=== PATIENT | female | born 1945 | race Two or more races ===

== ENCOUNTER 2018-06-23 01:41 | Inpatient (IN) | payer MEDICARE, MEDICAID ==
[~2018-06-23] VITALS: Ht 152.4 cm; Wt 48.1 kg
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
[2018-06-23] MEDS ORDERED: CALC500T29 PO (02:12)
[2018-06-23] MEDS ORDERED: CHOL100040 PO (02:13)
[2018-06-23] MEDS ORDERED: SPIR25TA6 PO (02:14)
[2018-06-23] MEDS ORDERED: ALPR1TAB7 PO (02:15)
[2018-06-23] MEDS ORDERED: QUET25TA PO (02:16)
[2018-06-23] MEDS ORDERED: LEVO75TA7 PO (02:18)
[2018-06-23] MEDS ORDERED: METO-358 PO (02:19)
[2018-06-23] MEDS ORDERED: ROSU10TA2 PO (02:20)
[2018-06-23] MEDS ORDERED: ESCI10TA PO (02:26)
[2018-06-23] MEDS ORDERED: FURO40TA5 PO (02:27)
[2018-06-23] MEDS ORDERED: ASPI-1152 PO (02:27)
[2018-06-23] MEDS ORDERED: ALLO100T PO (02:28)
[2018-06-23] MEDS ORDERED: MAG HYDROX/AL HYDROX/SIMETH 30 ML UDC PO PRN (03:00)
[2018-06-23] MEDS ORDERED: ACETAMINOPHEN 325 MG TABLET PO PRN (03:00)
[2018-06-23] MEDS ORDERED: MAGNESIUM HYDROXIDE 30 ML UDC PO PRN (03:00)
[2018-06-23 08:00] VITALS: BP 110/73
--- NOTE | 2018-06-23 13:40 | NUR ---
DR. JORDAN IN THENUNIT AND REMINDED TO RECONCILE THE MEDS.
[2018-06-23 14:59] LABS: BASOPHILS % (AUTO) 0.9 % (0.0-2.0); EOSINOPHILS % (AUTO) 2.3 % (0.0-6.0); HEMATOCRIT 37 % (33-45); HEMOGLOBIN 12.4 g/dL (11.5-14.8); LYMPHOCYTES # (AUTO) 1.2 /CMM (0.8-4.8); LYMPHOCYTES % (AUTO) 27.7 % (20.0-44.0); MEAN CORPUSCULAR HGB CONC 34 g/dl (31.0-36.0); MEAN CORPUSCULAR VOLUME 93 fL (82-100); MONOCYTES # (AUTO) 0.5 /CMM (0.1-1.30); MONOCYTES % (AUTO) 11.3 % (2.0-12.0); NEUTROPHILS # (AUTO) 2.5 /CMM (1.8-8.9); NEUTROPHILS % (AUTO) 57.8 % (43.0-81.0); PLATELET COUNT (AUTO) 180 /CMM (150-450); RED BLOOD CELL COUNT(AUTO) 3.92 MIL/uL (4.0-5.2); WHITE BLOOD COUNT (AUTO) 4.3 K/uL (4.3-11.0)
[2018-06-23] MEDS: CHOLECALCIFEROL 1,000 UNIT TABLET (VIT D3) PO SCH (15:00)
[2018-06-23 16:00] VITALS: BP 117/75
[2018-06-23] MEDS: CALCIUM CARBONATE (1250) 500 MG TABLET PO SCH (17:00)
--- NOTE | 2018-06-23 17:06 | NUR ---
Pt. refused to take the Vit D3 and Calcium Carbonate, was explained on the impotance and offered 3x and still refusing and said "I don't take it".
[2018-06-23] MEDS: clonazePAM 0.5 MG TABLET PO PRN (19:33)
[2018-06-23] MEDS: DIVALPROEX SODIUM 125 MG CAP.SPRINK PO SCH (21:00)
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
--- NOTE | 2018-06-23 21:40 | NUR ---
GPS/CCTV TECHNICIAN NOTES: MANAGER IN HOME NOTIFIED THAT I WAS UNABLE TO GIVE HS MEDS DUE TO IT STILL BEING UNVERIFIED BY PHARMACY. MANAGER IN HOME MURALI STATED TO JUST LEAVE IT TILL TOMORROW.
[2018-06-23] MEDS ORDERED: QUETIAPINE FUMARATE 25 MG TABLET PO SCH (22:00)
[2018-06-24] MEDS: TEMAZEPAM 7.5 MG CAPSULE PO PRN (01:16)
[2018-06-24 07:15] LABS: BASOPHILS % (AUTO) 0.9 % (0.0-2.0); EOSINOPHILS % (AUTO) 3.8 % (0.0-6.0); HEMATOCRIT 34 % (33-45); HEMOGLOBIN 11.7 g/dL (11.5-14.8); LYMPHOCYTES # (AUTO) 1.1 /CMM (0.8-4.8); LYMPHOCYTES % (AUTO) 26.8 % (20.0-44.0); MEAN CORPUSCULAR HGB CONC 35 g/dl (31.0-36.0); MEAN CORPUSCULAR VOLUME 93 fL (82-100); MONOCYTES # (AUTO) 0.5 /CMM (0.1-1.30); NEUTROPHILS # (AUTO) 2.4 /CMM (1.8-8.9); NEUTROPHILS % (AUTO) 56.5 % (43.0-81.0); PLATELET COUNT (AUTO) 162 /CMM (150-450); RED BLOOD CELL COUNT(AUTO) 3.62 MIL/uL (4.0-5.2); WHITE BLOOD COUNT (AUTO) 4.2 K/uL (4.3-11.0)
[2018-06-24 07:47] LABS: ALANINE AMINOTRANSFERASE 39 U/L (12-78); ALBUMIN 3.2 g/dL (3.4-5.0); ALKALINE PHOSPHATASE 132 U/L (46-116); ASPARTATE AMINOTRANSFERASE 30 U/L (15-37); CALCIUM, SERUM 8.7 mg/dL (8.5-10.1); CARBON DIOXIDE 24 mmol/L (21-32); CHLORIDE 108 mmol/L (98-107); CHOLESTEROL 158 mg/dL (<200); CREATININE 0.8 mg/dL (0.6-1.3); GLUCOSE 100 mg/dL (74-106); HDL CHOLESTEROL 95 mg/dL (40-60); LDL 55 mg/dL (0-99); POTASSIUM 3.9 mmol/L (3.5-5.1); SODIUM SERUM 144 mmol/L (136-145); THYROID STIMULATING HORMONE 5.073 uIU/mL (0.358-3.74); TOTAL PROTEIN, SERUM 6.6 g/dL (6.4-8.2); TRIGLYCERIDES 56 mg/dL (30-150); UREA NITROGEN, BLOOD 24 mg/dL (7-18)
[2018-06-24] MEDS ORDERED: OLANZAPINE 10 MG VIAL IM ONE (08:00)
--- NOTE | 2018-06-24 08:00 | NUR ---
RN-CO: Patient is yelling, screaming, non redirectable. High fall risk. 1:1 sitter ordered.
[2018-06-24] MEDS: ATORVASTATIN 10 MG TABLET PO SCH (09:00)
[2018-06-24] MEDS: CALCIUM CARBONATE (1250) 500 MG TABLET PO SCH ×2 (09:00→17:00)
[2018-06-24] MEDS: ALLOPURINOL 100 MG TABLET PO SCH (09:00)
[2018-06-24] MEDS: DIVALPROEX SODIUM 125 MG CAP.SPRINK PO SCH ×2 (09:00→17:00)
[2018-06-24] MEDS: ASPIRIN EC 81 MG TABLET.DR PO SCH (09:00)
[2018-06-24] MEDS: FUROSEMIDE 40 MG TABLET PO SCH (09:00)
[2018-06-24] MEDS: LEVOTHYROXINE SODIUM 75 MCG TABLET PO SCH (09:00)
[2018-06-24] MEDS: SPIRONOLACTONE 25 MG TABLET PO SCH (09:00)
[2018-06-24] MEDS: CHOLECALCIFEROL 1,000 UNIT TABLET (VIT D3) PO SCH (09:00)
--- NOTE | 2018-06-24 12:56 | NUR ---
SW called the pts sister in law, Opal ([phone]), who stated that the pt can return home because they informed the that if there are any problems then he would have to leave and they will care for the pt.
--- NOTE | 2018-06-24 12:57 | NUR ---
Initial Discharge Plan: Pt currently resides at her home located at [address] [place] [address], [address], [place] [address]; ([phone]) with her , Aga ([phone]). Per pt, she would not like to return home with her . SW will work with the pt and the MD regarding appropriate discharge planning. SW will form a safe and proper discharge.
[2018-06-24 16:00] VITALS: BP 145/70
--- NOTE | 2018-06-24 16:37 | NUR ---
RN-CO: Patient is calmer, cooperative and more redirectable. Discontinued 1:1 sitter.
[2018-06-24] MEDS: OLANZAPINE 5 MG TABLET PO SCH (17:00)
[2018-06-24 20:00] VITALS: BP 143/70
[2018-06-24] MEDS: clonazePAM 0.5 MG TABLET PO PRN (22:56)
--- NOTE | 2018-06-24 22:56 | NUR ---
LABILE, HYPERACTIVE, ANXIOUS, CLONAZEPAM 0.5 MG TAB PO GIVEN.
[2018-06-25 08:00] VITALS: BP 140/67
[2018-06-25] MEDS: DIVALPROEX SODIUM 125 MG CAP.SPRINK PO SCH ×3 (08:00→17:00)
[2018-06-25] MEDS: ALLOPURINOL 100 MG TABLET PO SCH (09:00)
[2018-06-25] MEDS: OLANZAPINE 5 MG TABLET PO SCH ×3 (09:00→17:00)
[2018-06-25] MEDS: FUROSEMIDE 40 MG TABLET PO SCH (09:00)
[2018-06-25] MEDS: CHOLECALCIFEROL 1,000 UNIT TABLET (VIT D3) PO SCH (09:00)
[2018-06-25] MEDS: ATORVASTATIN 10 MG TABLET PO SCH (09:00)
[2018-06-25] MEDS: LEVOTHYROXINE SODIUM 75 MCG TABLET PO SCH (09:00)
[2018-06-25] MEDS: SPIRONOLACTONE 25 MG TABLET PO SCH (09:00)
[2018-06-25] MEDS: CALCIUM CARBONATE (1250) 500 MG TABLET PO SCH ×2 (09:00→17:00)
[2018-06-25] MEDS: METOPROLOL SUCCINATE 50 MG TAB.SR.24H PO SCH ×2 (09:00→17:00)
[2018-06-25] MEDS: ASPIRIN EC 81 MG TABLET.DR PO SCH ×2 (09:13→10:32)
--- NOTE | 2018-06-25 14:17 | NUR ---
GPS RN NOTE: PATIENT REFUSED AM AND PM MEDS, ONLY TAKES ASPIRIN, EXPLAINED THE RISK AND BENEFITS X 3 ATTEMPTS BUT PATIENT STILL REFUSED, SCREAMED "NO NO NO". FAMILY AT BEDSIDE AND HELPED OFFERED THE MEDICATION BUT THE PATIENT STILL REFUSED. WILL CONTINUE TO MONITOR [id number] FOR SAFETY
[2018-06-25 16:09] VITALS: BP 132/80
--- NOTE | 2018-06-25 19:30 | NUR ---
GPS RN NOTE, RECEIVED PATIENT AWAKE AND IN ROOM NO S/S OR COMPLAINTS OF PAIN AT THIS TIME. PATIENT IS DISPLAYING NO S/S OF APPARENT DISTRESS AT THIS TIME. PATIENT BREATHING IS UNLABORED WITH EQUAL RISE AND FALL OF THE CHEST. PATIENT IS ALERT AND ORIENTED X 1-2 ON ROOM AIR WITH A SPO2 OF 97%. PATIENT HAS A ONE TO ONE FOR SAFETY. PATIENT IS REFUSING ALL MEDS, DISORGANIZED, HYPERVERBAL, LABILE, COOPERATIVE, AND NEEDS REORIENTATION. PATIENT DENIES SUICIDE AND HOMICIDAL IDEATIONS AT THIS TIME. PATIENT ASSISTED WITH TURNING AND REPOSITIONING Q2HR AND PRN FOR COMFORT AND CIRCULATION. PATIENT HAS NO NEEDS AT THIS TIME. PATIENT EDUCATED ON THE USE OF THE CALL YEE. PATIENT BED SIDE RAILS ARE UP X 2 FOR SAFETY, BED IS LOCKED AND LOW. WILL CONTINUE TO MONITOR AND MAINTAIN SAFETY Q15 MIN WITH THE HELP OF STAFF.
[2018-06-25 20:00] VITALS: BP 136/66
[2018-06-26] MEDS: DIVALPROEX SODIUM 125 MG CAP.SPRINK PO SCH ×3 (07:54→17:00)
[2018-06-26 08:00] VITALS: BP 143/77
[2018-06-26] MEDS: FUROSEMIDE 40 MG TABLET PO SCH (08:00)
[2018-06-26] MEDS: SPIRONOLACTONE 25 MG TABLET PO SCH (08:00)
[2018-06-26] MEDS: CHOLECALCIFEROL 1,000 UNIT TABLET (VIT D3) PO SCH (08:00)
[2018-06-26] MEDS: OLANZAPINE 5 MG TABLET PO SCH ×3 (08:00→17:00)
[2018-06-26] MEDS: ALLOPURINOL 100 MG TABLET PO SCH (08:00)
[2018-06-26] MEDS: METOPROLOL SUCCINATE 50 MG TAB.SR.24H PO SCH ×2 (08:00→17:00)
[2018-06-26] MEDS: LEVOTHYROXINE SODIUM 75 MCG TABLET PO SCH (08:00)
[2018-06-26] MEDS: ATORVASTATIN 10 MG TABLET PO SCH (08:00)
[2018-06-26] MEDS: CALCIUM CARBONATE (1250) 500 MG TABLET PO SCH ×2 (08:00→17:00)
[2018-06-26 16:00] VITALS: BP 140/70
--- NOTE | 2018-06-26 19:09 | NUR ---
Pt refused all her scheduled medication today.
--- NOTE | 2018-06-26 19:30 | NUR ---
GPS RN NOTE, RECEIVED PATIENT AWAKE AND IN ROOM NO S/S OR COMPLAINTS OF PAIN AT THIS TIME. PATIENT IS DISPLAYING NO S/S OF APPARENT DISTRESS AT THIS TIME. PATIENT BREATHING IS UNLABORED WITH EQUAL RISE AND FALL OF THE CHEST. PATIENT IS ALERT AND ORIENTED X 1-2 ON ROOM AIR WITH A SPO2 OF 94%. PATIENT HAS A ONE TO ONE FOR SAFETY. PATIENT IS REFUSING ALL MEDS, DISORGANIZED, HYPERVERBAL, LABILE, COOPERATIVE, AND NEEDS REORIENTATION. PATIENT DENIES SUICIDE AND HOMICIDAL IDEATIONS AT THIS TIME. PATIENT ASSISTED WITH TURNING AND REPOSITIONING Q2HR AND PRN FOR COMFORT AND CIRCULATION. PATIENT HAS NO NEEDS AT THIS TIME. PATIENT EDUCATED ON THE USE OF THE CALL YEE. PATIENT BED SIDE RAILS ARE UP X 2 FOR SAFETY, BED IS LOCKED AND LOW. WILL CONTINUE TO MONITOR AND MAINTAIN SAFETY Q15 MIN WITH THE HELP OF STAFF.
[2018-06-26 19:36] VITALS: BP 147/79
[2018-06-26] MEDS: clonazePAM 0.5 MG TABLET PO PRN (19:50)
--- NOTE | 2018-06-26 19:50 | NUR ---
GPS RN NOTE, PATIENT HAS A COMPLAINT OF FEELING ANXIOUS AND IS REQUESTING KLONOPIN AT THIS TIME. PATIENT VITAL SIGNS ARE STABLE. GAVE KLONOPIN 0.5 MG PO Q4HR PRN ORDERED. WILL REASSESS FOR ANXIETY AND I WILL CONTINUE TO MONITOR THIS PATIENT.
--- NOTE | 2018-06-26 20:00 | NUR ---
GPS RN NOTE, PATIENT REFUSED TO HAVE A SKIN ASSESSMENT AND PICTURES TAKEN TODAY. OFFERED TO DO SKIN ASSESSMENT THREE TIMES BUT STILL PATIENT REFUSED. EDUCATED THIS PATIENT ON HOSPITAL POLICY ON DOING SKIN ASSESSMENT AND TAKING PICTURES. WILL CONTINUE TO MONITOR THIS PATIENT.
--- NOTE | 2018-06-26 23:30 | NUR ---
blower blast furnace notes got report from another nurse Abdulaziz for continuity of care. pt still resting lying down on her bed.no agitation noted. ate her snacks earlier but still refusing to take her medication even explained to her the benefits of its. will continue closely monitoring for pt. safety.
--- NOTE | 2018-06-27 01:19 | NUR ---
GPS RN NOTE, PATIENT ENDORSED TO SANDRA JACOBSON FOR CONTINUATION OF CARE.
[2018-06-27 07:42] LABS: CALCIUM, SERUM 9.3 mg/dL (8.5-10.1); CARBON DIOXIDE 28 mmol/L (21-32); CHLORIDE 102 mmol/L (98-107); CREATININE 0.8 mg/dL (0.6-1.3); GLUCOSE 137 mg/dL (74-106); SODIUM SERUM 139 mmol/L (136-145); UREA NITROGEN, BLOOD 28 mg/dL (7-18)
[2018-06-27] MEDS: DIVALPROEX SODIUM 125 MG CAP.SPRINK PO SCH ×3 (08:00→17:00)
--- NOTE | 2018-06-27 08:11 | NUR ---
GPS RN NOTE: Patient is yelling, screaming, uncooperative, high fall risk, un cooperative, non redirectable. 1:1 sitter reordered. CN aware.
[2018-06-27 08:44] VITALS: BP 158/80
[2018-06-27] MEDS: CHOLECALCIFEROL 1,000 UNIT TABLET (VIT D3) PO SCH (09:00)
[2018-06-27] MEDS: LEVOTHYROXINE SODIUM 75 MCG TABLET PO SCH (09:00)
[2018-06-27] MEDS: CALCIUM CARBONATE (1250) 500 MG TABLET PO SCH ×2 (09:00→17:00)
[2018-06-27] MEDS: ATORVASTATIN 10 MG TABLET PO SCH (09:00)
[2018-06-27] MEDS: OLANZAPINE 5 MG TABLET PO SCH ×3 (09:00→17:00)
[2018-06-27] MEDS: ALLOPURINOL 100 MG TABLET PO SCH (09:00)
[2018-06-27] MEDS: METOPROLOL SUCCINATE 50 MG TAB.SR.24H PO SCH ×2 (09:00→17:00)
[2018-06-27] MEDS: FUROSEMIDE 40 MG TABLET PO SCH (09:00)
[2018-06-27] MEDS: SPIRONOLACTONE 25 MG TABLET PO SCH (09:00)
[2018-06-27] MEDS: ASPIRIN EC 81 MG TABLET.DR PO SCH (09:00)
--- NOTE | 2018-06-27 14:23 | NUR ---
Opal ([phone]), pt's sister, called the SW and asked for an update regarding the pts discharge plan. SW stated that the pt is going to be discharged to a SNF per psychiatrist recommendation.
--- NOTE | 2018-06-27 14:24 | NUR ---
RISHI faxed a referral to [facility] (attn Raghavendra) to the fax number: [phone].
--- NOTE | 2018-06-27 14:25 | NUR ---
RISHI called the pt's , Aga ([phone]), but was unable to leave a message due to the need for an access code.
--- NOTE | 2018-06-27 14:43 | NUR ---
[facility] ([phone]) from [facility] called the SW and stated that the pt is accepted to the facility. SW discussed the pt's support system and also discussed that the pt is not ready for discharge at this time.
[2018-06-27 16:00] VITALS: BP 128/79
[2018-06-27 19:46] VITALS: BP 124/75
--- NOTE | 2018-06-28 01:39 | NUR ---
GPS-NOTES: PATIENT WOKE UP VERY AGITATED, BANGING THE DOOR, SPITTING, IRRITABLE, ANGRY, SCREAMING AND YELLING, PACING IN AND OUT OF HER ROOM, UNABLE TO FOLLOW INSTRUCTION/REDIRECTION. NEEDING CHEMICAL RESTRAINT. NOTIFIED DR. CARTER AND OBTAINED ORDER OF ZYPREXA 5MG IM X ONE NOTED AND CARRIED OUT. WILL MONITOR MEDICATION FOR EFFECTIVENESS AND PATIENT SAFETY. Addendum: 06/28/18 at 0557 by WALTER PATTERSON RN PATIENT IS AGGRESSIVE TOWARDS STAFF.
[2018-06-28] MEDS ORDERED: OLANZAPINE 10 MG VIAL IM ONE (02:00)
[2018-06-28] MEDS: DIVALPROEX SODIUM 125 MG CAP.SPRINK PO SCH ×3 (08:00→17:00)
[2018-06-28 08:04] VITALS: BP 126/74
[2018-06-28] MEDS: ASPIRIN EC 81 MG TABLET.DR PO SCH (08:49)
[2018-06-28] MEDS: SPIRONOLACTONE 25 MG TABLET PO SCH (08:49)
[2018-06-28] MEDS: METOPROLOL SUCCINATE 50 MG TAB.SR.24H PO SCH ×2 (08:50→17:00)
[2018-06-28] MEDS: LEVOTHYROXINE SODIUM 75 MCG TABLET PO SCH (08:50)
[2018-06-28] MEDS: CHOLECALCIFEROL 1,000 UNIT TABLET (VIT D3) PO SCH (08:50)
[2018-06-28] MEDS: ATORVASTATIN 10 MG TABLET PO SCH (08:50)
[2018-06-28] MEDS: FUROSEMIDE 40 MG TABLET PO SCH (08:50)
[2018-06-28] MEDS: ALLOPURINOL 100 MG TABLET PO SCH (08:50)
[2018-06-28] MEDS: CALCIUM CARBONATE (1250) 500 MG TABLET PO SCH ×2 (08:50→17:00)
[2018-06-28] MEDS: OLANZAPINE 5 MG TABLET PO SCH ×3 (08:51→17:00)
--- NOTE | 2018-06-28 08:51 | NUR ---
GPS/RN-NOTES PATIENT STRONGLY REFUSED ALL AM MEDICATIONS DESPITE EXPLANATIONS RISK AND BENEFITS. PATIENT STATED" NO I DON'T TAKE MEDICATIONS'.OFFERED X3.
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
[2018-06-28] MEDS ORDERED: OLANZAPINE 10 MG VIAL IM STA (09:36)
--- NOTE | 2018-06-28 11:57 | NUR ---
SW spoke to the pt and informed her about her mental illness. Pt stated that she is not sure why she was admitted to the hospital and stated that she should be released soon. SW stated that she was admitted due to psychotic behavior and because she has been refusing to take her medications, her progress has been declining. Pt did not agree with the SW.
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
--- NOTE | 2018-06-28 12:23 | NUR ---
RISHI faxed a referral to the [facility] with attention to admissions to the fax number: [phone].
--- NOTE | 2018-06-28 13:08 | NUR ---
GPS/RN-NOTES PATIENT REFUSED ALL 1300 MEDICATIONS. STATED" I WILL NOT TAKE MEDICATIONS".
[2018-06-28 15:12] VITALS: BP 142/85
--- NOTE | 2018-06-28 16:07 | NUR ---
GPS/RN-NOTES PATIENT C/O CHEST PAIN, VITAL SIGN 135/99 AND PULSE OF 109. O2 SAT OF 100% ROOM AIR. MANAGER WAREHOUSE OMAR MADE AWARE BY THE CHARGE NURSE WITH ORDERS OF TROPONIN Q6 HR X3 AND EKG STAT.
--- NOTE | 2018-06-28 17:01 | NUR ---
GPS/RN-NOTES PATIENT REFUSED ALL [address] WHITTAKER COVERING FOR DR. CARTER MADE AWARE OF PATIENT NONCOMPLIANT WITH P.O MEDICATIONS. PATIENT IN THE DAY ROOM SITTING IN THE CHAIR CALM AWAKE,ALERT ,NO ACUTE DISTRESS NOTED.ENDORSE TO CHARGE NURSE FOR CONTINUITY OF CARE.
[2018-06-28 19:39] VITALS: BP 132/76
--- NOTE | 2018-06-29 02:00 | NUR ---
GPS-NOTES: PATIENT C/O PAIN ON HER LEFT BREAST. ASSESSMENT MADE, NOTED WITH BRUISE ON THE LEFT LATERAL SIDE OF HER BREAST. PT. C/O PAIN WHEN TOUCHED, OFFERED COLD COMPRESS AND PAIN MEDICATION. PATIENT REFUSED AND BECAME AGITATED. AFTER EXPLAINING TO HER THE RISKS AND BENEFITS PATIENT WENT BACK TO SLEEP. WILL CONTINUE TO MONITOR AND CONTINUE TO ASSESS FOR PAIN. 06:45AM - RECEIVED EKG RESULT, WILL ENDORSE TO THE DAY SHIFT NURSE TO NOTIFY MD FOR THE RESULT.
[2018-06-29] MEDS: clonazePAM 0.5 MG TABLET PO PRN ×2 (02:08→20:39)
[2018-06-29] MEDS: TEMAZEPAM 7.5 MG CAPSULE PO PRN ×2 (02:22→21:31)
[2018-06-29 08:00] VITALS: BP 120/78
[2018-06-29] MEDS: DIVALPROEX SODIUM 125 MG CAP.SPRINK PO SCH ×3 (08:00→17:00)
--- NOTE | 2018-06-29 08:00 | NUR ---
GPS/RN-NOTES PATIENT WANDERING ROOM TO ROOM BANGING DOORS AND PUSHING COMPUTER IN THE HALLWAY,SCREAMING AND YELLING. UNREDIRECTABLE, CHARGE NURSE MADE DR CARTER AWARE OF PATIENT'S BEHAVIOR WITH IM ORDERS.
[2018-06-29] MEDS ORDERED: HALOPERIDOL LACTATE INJ 5 MG/ML VIAL IM STA (08:01)
[2018-06-29] MEDS ORDERED: LORAZEPAM INJ 2 MG/ML VIAL IM STA (08:03)
[2018-06-29] MEDS ORDERED: diphenhydrAMINE HCL 50 MG/ML VIAL IM STA (08:04)
[2018-06-29] MEDS: CHOLECALCIFEROL 1,000 UNIT TABLET (VIT D3) PO SCH (09:00)
[2018-06-29] MEDS: FUROSEMIDE 40 MG TABLET PO SCH (09:00)
[2018-06-29] MEDS: ATORVASTATIN 10 MG TABLET PO SCH (09:00)
[2018-06-29] MEDS: SPIRONOLACTONE 25 MG TABLET PO SCH (09:00)
[2018-06-29] MEDS: METOPROLOL SUCCINATE 50 MG TAB.SR.24H PO SCH ×2 (09:00→17:00)
[2018-06-29] MEDS: ASPIRIN EC 81 MG TABLET.DR PO SCH (09:00)
[2018-06-29] MEDS: LEVOTHYROXINE SODIUM 75 MCG TABLET PO SCH (09:00)
[2018-06-29] MEDS: OLANZAPINE 5 MG TABLET PO SCH (09:00)
[2018-06-29] MEDS: ALLOPURINOL 100 MG TABLET PO SCH (09:00)
[2018-06-29] MEDS: CALCIUM CARBONATE (1250) 500 MG TABLET PO SCH ×2 (09:00→17:00)
--- NOTE | 2018-06-29 09:09 | NUR ---
GPS/RN-NOTES PATIENT REFUSED ALL AM MEDICATIONS DESPITE EXPLANATIONS RISK AND BENEFITS. PATIENT STATED" NO I DON'T TAKE MEDICATIONS".OFFERED X3.
[2018-06-29] MEDS: BENZTROPINE MESYLATE (1 MG) 1 MG TABLET PO SCH ×2 (12:30→20:39)
--- NOTE | 2018-06-29 13:36 | NUR ---
GPS/RN-NOTES PATIENT REFUSED COGENTIN 0.5MG P.O AND DEPAKOTE 250MG P.O. OFFERED X3. CHARGE NURSE TRIED TO TALK AND OFFERED THE MEDICATIONS BUT PATIENT STILL REFUSED.
--- NOTE | 2018-06-29 13:36 | NUR ---
SW received a message from Karin from the [facility] and she stated that the pt was not accepted to the facility due to her psychotic behavior.
--- NOTE | 2018-06-29 13:41 | NUR ---
RISHI called the pts niece, Emma ([phone]), and informed her that the pt was not accepted to the [facility] due to her psychotic behavior. She stated that she would like the SW to send the referral one more time when she begins taking her medications and shows improvement. RISHI informed her that the pt was going to have her PC hearing today and this hearing will determine whether or not the pt should remain on her hold. RISHI stated that she would inform her about the results. RISHI also informed her that the It Project Lead for [facility], Raghavendra, is willing to speak to her about the Kosher options at the facility and SW provided her with the phone number to reach him at.
[2018-06-29 16:05] VITALS: BP 111/67
[2018-06-29] MEDS: HALOPERIDOL 5 MG TABLET PO SCH (17:39)
[2018-06-29 20:09] VITALS: BP 133/58
[2018-06-30 08:00] VITALS: BP 131/74
[2018-06-30] MEDS: DIVALPROEX SODIUM 125 MG CAP.SPRINK PO SCH ×3 (08:28→17:00)
[2018-06-30] MEDS: CALCIUM CARBONATE (1250) 500 MG TABLET PO SCH ×2 (08:34→17:00)
[2018-06-30] MEDS: ATORVASTATIN 10 MG TABLET PO SCH (08:34)
[2018-06-30] MEDS: BENZTROPINE MESYLATE (1 MG) 1 MG TABLET PO SCH ×2 (08:35→20:05)
[2018-06-30] MEDS: LEVOTHYROXINE SODIUM 75 MCG TABLET PO SCH (08:35)
[2018-06-30] MEDS: FUROSEMIDE 40 MG TABLET PO SCH (08:36)
[2018-06-30] MEDS: CHOLECALCIFEROL 1,000 UNIT TABLET (VIT D3) PO SCH (08:36)
[2018-06-30] MEDS: ASPIRIN EC 81 MG TABLET.DR PO SCH (08:36)
[2018-06-30] MEDS: HALOPERIDOL 5 MG TABLET PO SCH ×2 (08:36→17:00)
[2018-06-30] MEDS: METOPROLOL SUCCINATE 50 MG TAB.SR.24H PO SCH ×2 (08:43→17:00)
[2018-06-30] MEDS: SPIRONOLACTONE 25 MG TABLET PO SCH (08:45)
[2018-06-30] MEDS: ALLOPURINOL 100 MG TABLET PO SCH (08:45)
--- NOTE | 2018-06-30 09:09 | NUR ---
RISHI called the pt's , Aga ([phone]), and he stated that he does not speak [place] and requested that the SW speak to Opal, the pt's sister in law.
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
--- NOTE | 2018-06-30 11:28 | NUR ---
PT. WITH AN ORDER OF CHANGE SERVICE TO DR. WHITTAKER
[2018-06-30] MEDS ORDERED: BENZTROPINE MESYLATE (1 MG) 1 MG TABLET NG PRN (15:00)
[2018-06-30 16:00] VITALS: BP 126/66
[2018-06-30] MEDS: HALOPERIDOL LACTATE INJ 5 MG/ML VIAL IM PRN (17:48)
--- NOTE | 2018-06-30 18:00 | NUR ---
HALDOL 3MG IM GIVEN IN LEFT GLUTEUS RENATE PER MD ORDER
[2018-06-30] MEDS ORDERED: BENZTROPINE MESYLATE (2MG/2ML) 2 MG/2 ML AMPUL IM PRN (18:30)
[2018-06-30 20:00] VITALS: BP 130/55
[2018-07-01 08:00] VITALS: BP 124/59
[2018-07-01] MEDS: DIVALPROEX SODIUM 125 MG CAP.SPRINK PO SCH ×4 (08:00→17:00)
[2018-07-01] MEDS: CALCIUM CARBONATE (1250) 500 MG TABLET PO SCH ×3 (08:24→17:00)
[2018-07-01] MEDS: HALOPERIDOL 5 MG TABLET PO SCH ×3 (08:24→17:00)
[2018-07-01] MEDS: CHOLECALCIFEROL 1,000 UNIT TABLET (VIT D3) PO SCH ×2 (08:24→09:00)
[2018-07-01] MEDS: FUROSEMIDE 40 MG TABLET PO SCH ×2 (08:25→09:00)
[2018-07-01] MEDS: LEVOTHYROXINE SODIUM 75 MCG TABLET PO SCH ×2 (08:25→09:00)
[2018-07-01] MEDS: ATORVASTATIN 10 MG TABLET PO SCH ×2 (08:25→09:00)
[2018-07-01] MEDS: SPIRONOLACTONE 25 MG TABLET PO SCH ×2 (08:25→09:00)
[2018-07-01] MEDS: ALLOPURINOL 100 MG TABLET PO SCH ×2 (08:25→09:00)
[2018-07-01] MEDS: ASPIRIN EC 81 MG TABLET.DR PO SCH ×2 (08:26→09:00)
[2018-07-01] MEDS: METOPROLOL SUCCINATE 50 MG TAB.SR.24H PO SCH ×3 (08:26→17:00)
[2018-07-01] MEDS: HALOPERIDOL LACTATE INJ 5 MG/ML VIAL IM PRN ×2 (08:59→18:20)
[2018-07-01] MEDS: BENZTROPINE MESYLATE (1 MG) 1 MG TABLET PO SCH ×2 (09:00→21:39)
[2018-07-01 16:00] VITALS: BP 118/61
--- NOTE | 2018-07-01 16:04 | NUR ---
SW attempted to provide the pt with supportive counseling through individual therapy but the pt stated that she did not want to participate and that she just wanted to be discharged home.
[2018-07-01 20:00] VITALS: BP 122/56
[2018-07-02 08:00] VITALS: BP 107/62
[2018-07-02] MEDS: DIVALPROEX SODIUM 125 MG CAP.SPRINK PO SCH ×3 (08:00→16:18)
[2018-07-02] MEDS: ASPIRIN EC 81 MG TABLET.DR PO SCH (08:20)
[2018-07-02] MEDS: HALOPERIDOL 5 MG TABLET PO SCH ×2 (08:20→16:18)
[2018-07-02] MEDS: SPIRONOLACTONE 25 MG TABLET PO SCH (08:21)
[2018-07-02] MEDS: BENZTROPINE MESYLATE (1 MG) 1 MG TABLET PO SCH ×2 (08:22→20:25)
[2018-07-02] MEDS: METOPROLOL SUCCINATE 50 MG TAB.SR.24H PO SCH ×2 (08:23→16:18)
[2018-07-02] MEDS: CALCIUM CARBONATE (1250) 500 MG TABLET PO SCH ×2 (08:30→16:18)
[2018-07-02] MEDS: LEVOTHYROXINE SODIUM 75 MCG TABLET PO SCH (08:30)
[2018-07-02] MEDS: CHOLECALCIFEROL 1,000 UNIT TABLET (VIT D3) PO SCH (08:30)
[2018-07-02] MEDS: ATORVASTATIN 10 MG TABLET PO SCH (08:31)
[2018-07-02] MEDS: FUROSEMIDE 40 MG TABLET PO SCH (08:31)
[2018-07-02] MEDS: ALLOPURINOL 100 MG TABLET PO SCH (08:31)
[2018-07-02 16:00] VITALS: BP 143/53
[2018-07-02 20:00] VITALS: BP 126/71
[2018-07-02] MEDS: clonazePAM 0.5 MG TABLET PO PRN (20:26)
[2018-07-03 08:00] VITALS: BP 129/59
[2018-07-03] MEDS: DIVALPROEX SODIUM 125 MG CAP.SPRINK PO SCH ×3 (08:00→16:53)
[2018-07-03] MEDS: SPIRONOLACTONE 25 MG TABLET PO SCH (09:00)
[2018-07-03] MEDS: BENZTROPINE MESYLATE (1 MG) 1 MG TABLET PO SCH ×2 (09:00→21:13)
[2018-07-03] MEDS: CHOLECALCIFEROL 1,000 UNIT TABLET (VIT D3) PO SCH (09:00)
[2018-07-03] MEDS: FUROSEMIDE 40 MG TABLET PO SCH (09:00)
[2018-07-03] MEDS: METOPROLOL SUCCINATE 50 MG TAB.SR.24H PO SCH ×2 (09:00→16:54)
[2018-07-03] MEDS: CALCIUM CARBONATE (1250) 500 MG TABLET PO SCH ×2 (09:00→16:53)
[2018-07-03] MEDS: ASPIRIN EC 81 MG TABLET.DR PO SCH (09:00)
[2018-07-03] MEDS: LEVOTHYROXINE SODIUM 75 MCG TABLET PO SCH (09:00)
[2018-07-03] MEDS: ATORVASTATIN 10 MG TABLET PO SCH (09:00)
[2018-07-03] MEDS: ALLOPURINOL 100 MG TABLET PO SCH (09:00)
--- NOTE | 2018-07-03 13:15 | NUR ---
GPS RN INITIAL NOTES Received report at bedside from Registry Nurse. Will continue to monitor and assess patient for safety and behavior.
--- NOTE | 2018-07-03 13:58 | NUR ---
GPS RN - REFUSAL NOTES Patient refused Depakote 250mg PO. Explained risks vs benefits. Offered x3 but patient continue to refuse. next to patient and witness refusal. Will continue to monitor and assess patient.
[2018-07-03 16:00] VITALS: BP 148/83
[2018-07-03] MEDS: HALOPERIDOL 5 MG TABLET PO SCH (16:53)
[2018-07-03] MEDS: HALOPERIDOL LACTATE INJ 5 MG/ML VIAL IM PRN (17:56)
--- NOTE | 2018-07-03 17:56 | NUR ---
GPS RN REFUSAL NOTES Patient refused haldol PO, Depakote PO and Calcium Carb PO. Patient only took Metoprolol and verbalized that she's "okay to get a shot" (Haldol IM). Haldol 3mg IM given. Will continue to monitor and assess patient
[2018-07-03 20:00] VITALS: BP 117/71
[2018-07-03] MEDS: clonazePAM 0.5 MG TABLET PO PRN (21:13)
[2018-07-04 07:11] LABS: BASOPHILS % (AUTO) 0.8 % (0.0-2.0); HEMATOCRIT 32 % (33-45); HEMOGLOBIN 10.8 g/dL (11.5-14.8); LYMPHOCYTES # (AUTO) 1.1 /CMM (0.8-4.8); LYMPHOCYTES % (AUTO) 22.3 % (20.0-44.0); MEAN CORPUSCULAR HGB CONC 34 g/dl (31.0-36.0); MEAN CORPUSCULAR VOLUME 92 fL (82-100); MONOCYTES # (AUTO) 0.6 /CMM (0.1-1.30); MONOCYTES % (AUTO) 11.8 % (2.0-12.0); NEUTROPHILS % (AUTO) 62.1 % (43.0-81.0); PLATELET COUNT (AUTO) 183 /CMM (150-450); RED BLOOD CELL COUNT(AUTO) 3.43 MIL/uL (4.0-5.2); WHITE BLOOD COUNT (AUTO) 4.9 K/uL (4.3-11.0)
[2018-07-04 07:22] LABS: CALCIUM, SERUM 8.8 mg/dL (8.5-10.1); CARBON DIOXIDE 24 mmol/L (21-32); CHLORIDE 103 mmol/L (98-107); CREATININE 0.8 mg/dL (0.6-1.3); GLUCOSE 114 mg/dL (74-106); MAGNESIUM 2.3 mg/dL (1.8-2.4); PHOSPHORUS 3.9 mg/dL (2.5-4.9); POTASSIUM 4.3 mmol/L (3.5-5.1); SODIUM SERUM 136 mmol/L (136-145); UREA NITROGEN, BLOOD 30 mg/dL (7-18)
[2018-07-04 08:00] VITALS: BP 120/80
[2018-07-04] MEDS: DIVALPROEX SODIUM 125 MG CAP.SPRINK PO SCH ×3 (08:00→17:00)
[2018-07-04] MEDS: LEVOTHYROXINE SODIUM 75 MCG TABLET PO SCH (09:00)
[2018-07-04] MEDS: ALLOPURINOL 100 MG TABLET PO SCH (09:00)
[2018-07-04] MEDS: BENZTROPINE MESYLATE (1 MG) 1 MG TABLET PO SCH ×2 (09:00→21:45)
[2018-07-04] MEDS: CALCIUM CARBONATE (1250) 500 MG TABLET PO SCH ×2 (09:00→17:00)
[2018-07-04] MEDS: FUROSEMIDE 40 MG TABLET PO SCH (09:00)
[2018-07-04] MEDS: CHOLECALCIFEROL 1,000 UNIT TABLET (VIT D3) PO SCH (09:00)
[2018-07-04] MEDS: ASPIRIN EC 81 MG TABLET.DR PO SCH (09:00)
[2018-07-04] MEDS: SPIRONOLACTONE 25 MG TABLET PO SCH (09:00)
[2018-07-04] MEDS: ATORVASTATIN 10 MG TABLET PO SCH (09:00)
[2018-07-04] MEDS: HALOPERIDOL 5 MG TABLET PO SCH ×2 (09:00→17:00)
[2018-07-04] MEDS: METOPROLOL SUCCINATE 50 MG TAB.SR.24H PO SCH ×2 (09:00→17:00)
[2018-07-04] MEDS: HALOPERIDOL LACTATE INJ 5 MG/ML VIAL IM PRN (10:05)
[2018-07-04] MEDS ORDERED: HALOPERIDOL LACTATE INJ 5 MG/ML VIAL IM PRN (13:30)
[2018-07-04] MEDS ORDERED: WARFARIN SODIUM 5 MG TABLET GT ONE (14:00)
[2018-07-04 16:00] VITALS: BP 143/58
[2018-07-04] MEDS ORDERED: WARFARIN SODIUM 2 MG TABLET GT SCH (17:00)
[2018-07-04 19:58] VITALS: BP 128/72
[2018-07-04] MEDS: TEMAZEPAM 7.5 MG CAPSULE PO PRN (21:45)
[2018-07-05 08:00] VITALS: BP 127/66
[2018-07-05] MEDS: DIVALPROEX SODIUM 125 MG CAP.SPRINK PO SCH ×3 (08:00→17:00)
[2018-07-05] MEDS: HALOPERIDOL 5 MG TABLET PO SCH ×2 (08:41→17:37)
[2018-07-05] MEDS: ALLOPURINOL 100 MG TABLET PO SCH (08:57)
[2018-07-05] MEDS: SPIRONOLACTONE 25 MG TABLET PO SCH (08:57)
[2018-07-05] MEDS: ASPIRIN EC 81 MG TABLET.DR PO SCH (08:57)
[2018-07-05] MEDS: FUROSEMIDE 40 MG TABLET PO SCH (08:58)
[2018-07-05] MEDS: ATORVASTATIN 10 MG TABLET PO SCH (08:58)
[2018-07-05] MEDS: BENZTROPINE MESYLATE (1 MG) 1 MG TABLET PO SCH ×2 (08:58→20:01)
[2018-07-05] MEDS: CALCIUM CARBONATE (1250) 500 MG TABLET PO SCH ×2 (08:59→17:00)
[2018-07-05] MEDS: METOPROLOL SUCCINATE 50 MG TAB.SR.24H PO SCH ×2 (08:59→17:00)
[2018-07-05] MEDS: LEVOTHYROXINE SODIUM 75 MCG TABLET PO SCH (08:59)
--- NOTE | 2018-07-05 09:10 | NUR ---
RISHI called the pts niece, Emma ([phone]), and left a voicemail for her stating that there is no discharge date at this time and that the SW would like to discuss the pts discharge plan.
[2018-07-05] MEDS: CHOLECALCIFEROL 1,000 UNIT TABLET (VIT D3) PO SCH (09:37)
[2018-07-05] MEDS ORDERED: HALOPERIDOL LACTATE INJ 5 MG/ML VIAL IM STA (12:32)
[2018-07-05] MEDS ORDERED: LORAZEPAM INJ 2 MG/ML VIAL IM STA (12:32)
[2018-07-05] MEDS ORDERED: diphenhydrAMINE HCL 50 MG/ML VIAL IM STA (12:32)
--- NOTE | 2018-07-05 15:35 | NUR ---
RISHI called the pts Emma granados ([phone]), and discussed the discharge plan and it was stated that the pt is not stable enough to be discharged to the [facility] and that [facility] would be the most appropriate placement for her. RISHI stated that she would provide her with the discharge information once she meets with the psychiatrist.
[2018-07-05 16:00] VITALS: BP 103/79
[2018-07-05] MEDS ORDERED: WARFARIN SODIUM 2 MG TABLET GT SCH (17:00)
[2018-07-05] MEDS: clonazePAM 0.5 MG TABLET PO PRN (19:24)
[2018-07-05 20:15] VITALS: BP 131/53
[2018-07-06 08:00] VITALS: BP 116/59
[2018-07-06] MEDS: DIVALPROEX SODIUM 125 MG CAP.SPRINK PO SCH (08:00)
[2018-07-06] MEDS: CHOLECALCIFEROL 1,000 UNIT TABLET (VIT D3) PO SCH (08:29)
[2018-07-06] MEDS: ASPIRIN EC 81 MG TABLET.DR PO SCH (08:29)
[2018-07-06] MEDS: BENZTROPINE MESYLATE (1 MG) 1 MG TABLET PO SCH ×2 (08:29→20:05)
[2018-07-06] MEDS: ATORVASTATIN 10 MG TABLET PO SCH (08:29)
[2018-07-06] MEDS: HALOPERIDOL 5 MG TABLET PO SCH ×2 (08:30→16:53)
[2018-07-06] MEDS: LEVOTHYROXINE SODIUM 75 MCG TABLET PO SCH (08:31)
[2018-07-06] MEDS: FUROSEMIDE 40 MG TABLET PO SCH (08:31)
[2018-07-06] MEDS: METOPROLOL SUCCINATE 50 MG TAB.SR.24H PO SCH ×2 (08:31→16:53)
[2018-07-06] MEDS: CALCIUM CARBONATE (1250) 500 MG TABLET PO SCH ×2 (08:31→16:53)
[2018-07-06] MEDS: ALLOPURINOL 100 MG TABLET PO SCH (08:32)
[2018-07-06] MEDS: SPIRONOLACTONE 25 MG TABLET PO SCH (08:33)
--- NOTE | 2018-07-06 08:33 | NUR ---
GPS/RN-NOTES PATIENT SELECTIVE WITH MEDICATIONS,STATED" GIVE ME ASPIRIN,CHOLESTEROL, AND VITAMIN D,DON'T GIVE ME SHOT". HALDOL AND COGENTIN P.O GIVEN. EXPLAINED RISK AND BENEFITS OF BEING COMPLIANT WITH MEDICATIONS PATIENT STILL REFUSED OTHER MEDICATIONS.
[2018-07-06 16:00] VITALS: BP 117/70
--- NOTE | 2018-07-06 16:23 | NUR ---
Group Therapy: SW prompted the pt to go to group but the pt refused due to her psychosis.
--- NOTE | 2018-07-06 18:58 | NUR ---
GPS/RN-NOTES URINE COLLECTED SUDA ( LAB STAFF) AWARE AND WILL CARE TRANSITION MANAGER.
[2018-07-06] MEDS: clonazePAM 0.5 MG TABLET PO PRN (19:40)
[2018-07-06 20:40] VITALS: BP 109/62
[2018-07-06 23:53] LABS: APPEARANCE,URINE CLEAR (CLEAR); BILIRUBIN,URINE NEGATIVE (NEGATIVE); BLOOD, URINE TRACE-INTA Ery/uL (NEGATIVE); COLOR,URINE YELLOW (YELLOW); KETONES,URINE NEGATIVE (NEGATIVE); LEUKOCYTE ESTERASE ,URINE NEGATIVE (NEGATIVE); NITRITE, URINE NEGATIVE (NEGATIVE); PROTEIN,URINE NEGATIVE (NEGATIVE); UGLUCOSE NEGATIVE (NEGATIVE)
[2018-07-07 00:26] LABS: BACTERIA,URINE Rare /HPF (None Seen); SQUAMOUS EPITHELIAL CELL,UR Few /HPF (None Seen); WBC,URINE 0-2 /HPF (0-3)
[2018-07-07 08:00] VITALS: BP 110/59
--- NOTE | 2018-07-07 08:00 | NUR ---
PATIENT IS PACING IN THE HALLWAY, ALERT AND ORIENTED X2. IN NO APPARENT DISTRESS NOTED. PT. APPEARS TO BE ANXIOUS, RESTLESS, CONFUSED, MED COMPLIANT, AMBULATES INDEPENDENTLY. SUPPORTIVE OF PATIENT WHEN CALLED. NO C/O PAIN OR DISCOMFORT. SAFETY AND FALL PRECAUTIONS IMPLEMENTED. WILL CONTINUE TO MONITOR [id number] FOR SAFETY AND BEHAVIOR.
[2018-07-07] MEDS: HALOPERIDOL 5 MG TABLET PO SCH ×2 (08:42→16:02)
[2018-07-07] MEDS: ASPIRIN EC 81 MG TABLET.DR PO SCH (08:42)
[2018-07-07] MEDS: METOPROLOL SUCCINATE 50 MG TAB.SR.24H PO SCH ×2 (09:00→16:06)
[2018-07-07] MEDS: CALCIUM CARBONATE (1250) 500 MG TABLET PO SCH ×2 (09:00→16:03)
[2018-07-07] MEDS: BENZTROPINE MESYLATE (1 MG) 1 MG TABLET PO SCH ×2 (09:00→21:03)
[2018-07-07] MEDS: SPIRONOLACTONE 25 MG TABLET PO SCH (09:00)
[2018-07-07] MEDS: FUROSEMIDE 40 MG TABLET PO SCH (09:00)
[2018-07-07] MEDS: ATORVASTATIN 10 MG TABLET PO SCH (09:00)
[2018-07-07] MEDS ORDERED: HALOPERIDOL DECANOATE IM 100 MG/ML AMPUL IM ONE (09:00)
[2018-07-07] MEDS: CHOLECALCIFEROL 1,000 UNIT TABLET (VIT D3) PO SCH (09:00)
[2018-07-07] MEDS: ALLOPURINOL 100 MG TABLET PO SCH (09:00)
[2018-07-07] MEDS: LEVOTHYROXINE SODIUM 75 MCG TABLET PO SCH (09:00)
[2018-07-07 16:00] VITALS: BP 123/73
[2018-07-07] MEDS: clonazePAM 0.5 MG TABLET PO PRN (18:44)
[2018-07-07 20:00] VITALS: BP 105/59
[2018-07-07] MEDS: TEMAZEPAM 7.5 MG CAPSULE PO PRN (21:03)
[2018-07-08 08:00] VITALS: BP 120/54
[2018-07-08] MEDS: ASPIRIN EC 81 MG TABLET.DR PO SCH (08:19)
[2018-07-08] MEDS: HALOPERIDOL 5 MG TABLET PO SCH ×2 (08:19→18:23)
[2018-07-08] MEDS: BENZTROPINE MESYLATE (1 MG) 1 MG TABLET PO SCH ×2 (08:19→20:33)
[2018-07-08] MEDS: CHOLECALCIFEROL 1,000 UNIT TABLET (VIT D3) PO SCH (08:19)
[2018-07-08] MEDS: METOPROLOL SUCCINATE 50 MG TAB.SR.24H PO SCH ×2 (08:19→16:23)
[2018-07-08] MEDS: CALCIUM CARBONATE (1250) 500 MG TABLET PO SCH ×2 (08:19→17:00)
[2018-07-08] MEDS: FUROSEMIDE 40 MG TABLET PO SCH (08:20)
[2018-07-08] MEDS: SPIRONOLACTONE 25 MG TABLET PO SCH (08:20)
[2018-07-08] MEDS: LEVOTHYROXINE SODIUM 75 MCG TABLET PO SCH (08:20)
[2018-07-08] MEDS: ATORVASTATIN 10 MG TABLET PO SCH (08:42)
[2018-07-08] MEDS: ALLOPURINOL 100 MG TABLET PO SCH (08:42)
[2018-07-08] MEDS ORDERED: LORAZEPAM INJ 2 MG/ML VIAL IM ONE (10:30)
--- NOTE | 2018-07-08 10:30 | NUR ---
GPS/RN PT IS PACING FOCUSING ON GOING HOME TODAY. OFFERED ATIVAN TO CALM HER DOWN. PT AGREED TO HAVE IM ATIVAN. ORDERS RECEIVED FROM DR WHITTAKER AND CARRIED OUT.
--- NOTE | 2018-07-08 13:42 | NUR ---
SW called Opal ([phone]), pt's sister in law, and informed her that the psychiatrist was considering discharging the pt home today if the family had supports in place. Opal stated that there is no one who can take care of the pt and therefore they want her to be discharged to a SNF. RISHI stated that she would talk to the psychiatrist and keep them updated.
--- NOTE | 2018-07-08 13:47 | NUR ---
RISHI called Opal ([phone]), pt's sister in law, and informed her that the pt will be discharged to [facility] on Wednesday.
[2018-07-08 16:17] VITALS: BP 92/60
[2018-07-08] MEDS: DIVALPROEX SODIUM 125 MG CAP.SPRINK PO SCH (18:23)
[2018-07-08 20:00] VITALS: BP 92/53
[2018-07-08] MEDS: TEMAZEPAM 7.5 MG CAPSULE PO PRN (20:34)
[2018-07-09 08:00] VITALS: BP 110/75
[2018-07-09] MEDS: CHOLECALCIFEROL 1,000 UNIT TABLET (VIT D3) PO SCH (09:00)
[2018-07-09] MEDS: clonazePAM 0.5 MG TABLET PO PRN ×2 (09:44→16:24)
[2018-07-09] MEDS: HALOPERIDOL 5 MG TABLET PO SCH ×2 (09:44→16:30)
[2018-07-09] MEDS: DIVALPROEX SODIUM 125 MG CAP.SPRINK PO SCH ×3 (09:44→16:30)
[2018-07-09] MEDS: LEVOTHYROXINE SODIUM 75 MCG TABLET PO SCH (09:44)
[2018-07-09] MEDS: BENZTROPINE MESYLATE (1 MG) 1 MG TABLET PO SCH ×2 (09:45→20:43)
[2018-07-09] MEDS: CALCIUM CARBONATE (1250) 500 MG TABLET PO SCH ×2 (10:09→16:28)
[2018-07-09] MEDS: ATORVASTATIN 10 MG TABLET PO SCH (10:09)
[2018-07-09] MEDS: ASPIRIN EC 81 MG TABLET.DR PO SCH (10:10)
[2018-07-09] MEDS: FUROSEMIDE 40 MG TABLET PO SCH (10:10)
[2018-07-09] MEDS: SPIRONOLACTONE 25 MG TABLET PO SCH (10:10)
[2018-07-09] MEDS: ALLOPURINOL 100 MG TABLET PO SCH (10:10)
[2018-07-09] MEDS: METOPROLOL SUCCINATE 50 MG TAB.SR.24H PO SCH ×2 (10:10→16:28)
[2018-07-09 16:00] VITALS: BP 106/59
--- NOTE | 2018-07-09 19:30 | NUR ---
RN NOTES RECEIVED PT. AWAKE INSIDE HER ROOM , JUST CAME OUT FROM THE TOILET, PT. COMPLAINED THAT SHE HAS BLOOD ON HER UNDERWEAR, PATIENT SHOWED IT TO ME AND THERE'S A BLOOD, CHANGE PATIENT UNDERWEAR AND PUT AN OB PADS TO MONITOR HER BLEEDING , CHARGE NURSE MADE AWARE.
[2018-07-09 20:00] VITALS: BP 133/79
--- NOTE | 2018-07-10 06:00 | NUR ---
RN NOTES CHECK PATIENT'S OB PADS - BLOOD IS DRY , NO ACTIVE BLEEDING NOTED, ENDORSED TO DAYSHIFT NURSE FOR CONTINUITY OF CARE
[2018-07-10 07:23] LABS: BASOPHILS % (AUTO) 0.8 % (0.0-2.0); HEMATOCRIT 29 % (33-45); HEMOGLOBIN 10.2 g/dL (11.5-14.8); LYMPHOCYTES # (AUTO) 0.9 /CMM (0.8-4.8); MEAN CORPUSCULAR HGB CONC 35 g/dl (31.0-36.0); MEAN CORPUSCULAR VOLUME 92 fL (82-100); MONOCYTES # (AUTO) 0.6 /CMM (0.1-1.30); NEUTROPHILS # (AUTO) 2.8 /CMM (1.8-8.9); NEUTROPHILS % (AUTO) 62.2 % (43.0-81.0); PLATELET COUNT (AUTO) 184 /CMM (150-450); RED BLOOD CELL COUNT(AUTO) 3.19 MIL/uL (4.0-5.2); WHITE BLOOD COUNT (AUTO) 4.5 K/uL (4.3-11.0)
[2018-07-10 08:00] VITALS: BP 97/50
[2018-07-10] MEDS: HALOPERIDOL 5 MG TABLET PO SCH ×2 (08:30→17:54)
[2018-07-10] MEDS: BENZTROPINE MESYLATE (1 MG) 1 MG TABLET PO SCH ×2 (08:30→20:17)
[2018-07-10] MEDS: DIVALPROEX SODIUM 125 MG CAP.SPRINK PO SCH ×3 (08:30→17:54)
[2018-07-10] MEDS: clonazePAM 0.5 MG TABLET PO PRN ×2 (08:30→20:18)
[2018-07-10] MEDS: LEVOTHYROXINE SODIUM 75 MCG TABLET PO SCH (08:30)
[2018-07-10] MEDS: METOPROLOL SUCCINATE 50 MG TAB.SR.24H PO SCH ×2 (09:00→17:58)
[2018-07-10] MEDS: FUROSEMIDE 40 MG TABLET PO SCH (09:00)
[2018-07-10] MEDS: CALCIUM CARBONATE (1250) 500 MG TABLET PO SCH ×2 (09:00→17:00)
[2018-07-10] MEDS: CHOLECALCIFEROL 1,000 UNIT TABLET (VIT D3) PO SCH (09:00)
[2018-07-10] MEDS: ALLOPURINOL 100 MG TABLET PO SCH (09:00)
[2018-07-10] MEDS: SPIRONOLACTONE 25 MG TABLET PO SCH (09:00)
[2018-07-10] MEDS: ATORVASTATIN 10 MG TABLET PO SCH (09:00)
[2018-07-10] MEDS: ASPIRIN EC 81 MG TABLET.DR PO SCH (09:00)
[2018-07-10 16:00] VITALS: BP 113/75
[2018-07-10 20:02] VITALS: BP 121/66
[2018-07-10] MEDS: TEMAZEPAM 7.5 MG CAPSULE PO PRN (20:17)
[2018-07-11 07:43] LABS: BASOPHILS % (AUTO) 0.5 % (0.0-2.0); EOSINOPHILS % (AUTO) 2.1 % (0.0-6.0); HEMATOCRIT 29 % (33-45); HEMOGLOBIN 10.2 g/dL (11.5-14.8); LYMPHOCYTES # (AUTO) 0.8 /CMM (0.8-4.8); MEAN CORPUSCULAR HGB CONC 35 g/dl (31.0-36.0); MEAN CORPUSCULAR VOLUME 92 fL (82-100); MONOCYTES # (AUTO) 0.5 /CMM (0.1-1.30); MONOCYTES % (AUTO) 12.1 % (2.0-12.0); NEUTROPHILS # (AUTO) 2.9 /CMM (1.8-8.9); NEUTROPHILS % (AUTO) 66.3 % (43.0-81.0); PLATELET COUNT (AUTO) 170 /CMM (150-450); RED BLOOD CELL COUNT(AUTO) 3.17 MIL/uL (4.0-5.2); WHITE BLOOD COUNT (AUTO) 4.4 K/uL (4.3-11.0)
[2018-07-11 07:51] LABS: VALPROIC ACID 43 ug/mL (50-100)
[2018-07-11 07:58] LABS: ALANINE AMINOTRANSFERASE 41 U/L (12-78); ALBUMIN 3.2 g/dL (3.4-5.0); ALKALINE PHOSPHATASE 201 U/L (46-116); BILIRUBIN,TOTAL 0.5 mg/dL (0.2-1.0); CALCIUM, SERUM 8.5 mg/dL (8.5-10.1); CARBON DIOXIDE 25 mmol/L (21-32); CHLORIDE 106 mmol/L (98-107); CREATININE 0.8 mg/dL (0.6-1.3); GLUCOSE 110 mg/dL (74-106); POTASSIUM 4.4 mmol/L (3.5-5.1); SODIUM SERUM 140 mmol/L (136-145); TOTAL PROTEIN, SERUM 6.7 g/dL (6.4-8.2); UREA NITROGEN, BLOOD 25 mg/dL (7-18)
[2018-07-11 08:00] VITALS: BP 100/57
[2018-07-11 08:09] LABS: ASPARTATE AMINOTRANSFERASE 24 U/L (15-37)
[2018-07-11 09:00] VITALS: BP 100/57
[2018-07-11] MEDS: METOPROLOL SUCCINATE 50 MG TAB.SR.24H PO SCH (09:00)
[2018-07-11] MEDS: HALOPERIDOL 5 MG TABLET PO SCH (09:01)
[2018-07-11] MEDS: LEVOTHYROXINE SODIUM 75 MCG TABLET PO SCH (09:02)
[2018-07-11] MEDS: ATORVASTATIN 10 MG TABLET PO SCH (09:02)
[2018-07-11] MEDS: CHOLECALCIFEROL 1,000 UNIT TABLET (VIT D3) PO SCH (09:02)
[2018-07-11] MEDS: ASPIRIN EC 81 MG TABLET.DR PO SCH (09:02)
[2018-07-11] MEDS: ALLOPURINOL 100 MG TABLET PO SCH (09:02)
[2018-07-11] MEDS: SPIRONOLACTONE 25 MG TABLET PO SCH (09:04)
[2018-07-11] MEDS: CALCIUM CARBONATE (1250) 500 MG TABLET PO SCH (09:04)
[2018-07-11] MEDS: BENZTROPINE MESYLATE (1 MG) 1 MG TABLET PO SCH (09:04)
[2018-07-11] MEDS: DIVALPROEX SODIUM 125 MG CAP.SPRINK PO SCH (09:04)
[2018-07-11] MEDS: FUROSEMIDE 40 MG TABLET PO SCH (09:04)
--- NOTE | 2018-07-11 10:17 | NUR ---
Sw reached out to [facility] requesting pts room number, pts room number is 202B. [facility] requested medication list and most recent progress not. Social work faxed requested paperwork to [facility] at [phone].
--- NOTE | 2018-07-11 11:15 | NUR ---
ETHNOGRAPHIC MATERIALS CONSERVATOR NOTE:PATIENT ALERT VERBALLY RESPONSIVE DENIES SI/HI/AVH. AMBULATORY AND SELF CARE ,NO C/O PAIN ,VS STABLE .SEEN BY AND WITH DISCHARGE ORDERS ,ALL BELONGINGS RETURNED TO PATIENT .REPORT GIVEN TO WHITNEY JACOBSON NURSE IN [facility] .PATIENT DISCHARGED AT 1115 WITH AMBULANCE
--- NOTE | 2018-07-11 12:09 | NUR ---
DISCHARGE NOTE: Pt was discharged at 11:00am to [facility] ([facility]) located at [address] [place] [address]; ([phone]). Pt will be transported via [facility] (Trip #[id number]) at 11AM. [id number]. Pts sister in law, Opal ([phone]), has been informed of this discharge and has approved of it. Psychiatrist: Dr. Nasreen Hair ([address] [address], [place] [address]; ) [employer] Attendant: Dr. Martinez ([address] [place] [address]; . Pts mood was euthymic with congruent affect. Pt denies visual/auditory hallucination and denied suicidal/homicidal ideations. The multidisciplinary exit care form was done, printed, signed and given to pt.
== END 2018-07-11 11:15 | DRG 885 ==
LOC: GPS 01:41
PROVIDERS: ADMIT Psychiatry & Neurology Psychosomatic Medicine; ATTEND Student in an Organized Health Care Education/Training Program
DX: F23 Brief psychotic disorder (principal); I11.0 Hypertensive heart disease with heart failure; I50.32 Chronic diastolic (congestive) heart failure; F41.9 Anxiety disorder, unspecified; F32.9 Major depressive disorder, single episode, unspecified; E78.5 Hyperlipidemia, unspecified; M10.9 Gout, unspecified; E03.9 Hypothyroidism, unspecified; F09 Unspecified mental disorder due to known physiological condition; E86.0 Dehydration; Z91.14 Patient's other noncompliance with medication regimen; R79.89 Other specified abnormal findings of blood chemistry; R07.89 Other chest pain; Z95.2 Presence of prosthetic heart valve
CPT/HCPCS: 36415; 71111-TC; 76856-TC; 80048-TC; 80053-TC; 80061-TC; 80164-TC; 81000-TC; 83735-TC; 84100-TC; 84436-TC; 84443-TC; 84484-TC; 85025-TC; 87081-TC; 93307-TC; J1200; J1630; J1631; J2060; J3490